=== PATIENT | male | born 1960 | race Caucasian/White ===

== ENCOUNTER → 2018-03-02 18:05 | Outpatient (CLI) | payer OTHER, SELFPAY ==
[2018-03-02 18:41] LABS: Hemoglobin A1C% w Est Avg Glu 8.4 % (4.0-6.0)
[2018-03-02 19:08] LABS: Alanine Aminotransferase 39 IU/L (21-72); Albumin 4.4 g/dL (3.5-5.0); Albumin Globulin Ratio 1.8 (1.0-2.8); Alkaline Phosphatase 77 U/L (38-126); Aspartate Aminotransferase 24 IU/L (17-59); BUN Creatinine Ratio 13.3 (6-22); Bilirubin Total 0.6 mg/dL (0.2-1.3); Blood Urea Nitrogen 12 mg/dL (9-20); Calcium 10.1 mg/dL (8.4-10.2); Carbon Dioxide 29 mmol/L (22-32); Chloride 103 mmol/L (98-107); Cholesterol 164 mg/dL (140-199); Estimated Glomerular Filt Rate > 60.0 mL/min (>60); Globulin 2.5 g/dL (1.7-4.1); Glucose 168 mg/dL (70-100); HDL Cholesterol 32 mg/dL (40-60); HEMOLYSIS < 15 (0-50); Potassium 4.7 mmol/L (3.4-5.1); Sodium 143 mmol/L (137-145); Total Protein 6.9 g/dL (6.3-8.2); Triglycerides 494 mg/dL (35-150)
== END ==
PROVIDERS: PCP Family Medicine; Visit Provider Family Medicine
DX: E11.9 Type 2 diabetes mellitus without complications (principal); E78.1 Pure hyperglyceridemia
CPT/HCPCS: 36415; 80053; 80061; 83036

== ENCOUNTER → 2018-05-28 09:48 | Outpatient (CLI) | payer OTHER, SELFPAY ==
[2018-05-28 12:35] LABS: Hemoglobin A1C% w Est Avg Glu 9.6 % (4.0-6.0)
== END ==
PROVIDERS: PCP Family Medicine; Visit Provider Family Medicine
DX: E11.9 Type 2 diabetes mellitus without complications (principal)
CPT/HCPCS: 36415; 83036

== ENCOUNTER → 2018-08-22 10:30 | Outpatient (CLI) | payer OTHER, SELFPAY ==
[2018-08-22 11:22] LABS: Add Manual Diff / Slide Review NO; Basophils Absolute Auto 100 /uL (0-100); Basophils Percent Auto 0.9 % (0-2); Eosinophils Absolute Auto 300 /uL (0-450); Eosinophils Percent Auto 3.9 % (2-4); Hematocrit 41.2 % (41-53); Hemoglobin 14.6 g/dL (13.5-17.5); Lymphocytes Absolute Auto 1400 /uL (1100-4500); Lymphocytes Percent Auto 21.3 % (25-40); Mean Corpuscular HGB Conc 35.4 % (30-36); Mean Corpuscular Hemoglobin 32.2 PG (26-34); Mean Corpuscular Volume 90.8 fL (80-100); Monocytes Absolute Auto 600 /uL (0-900); Monocytes Percent Auto 9.4 % (3-14); Neutrophils Absolute Auto 4200 /uL (1500-7000); Neutrophils Percent Auto 64.5 % (50-75); Platelet Count 315 X10^3/uL (150-400); Red Blood Cell Count 4.54 X10^6/uL (4.5-5.9); Red Cell Distribution Width 14.5 % (11.6-14.8); White Blood Cell Count 6.5 X10^3/uL (4.5-11.0)
[2018-08-22 11:40] LABS: Alanine Aminotransferase 41 IU/L (21-72); Albumin 4.1 g/dL (3.5-5.0); Albumin Globulin Ratio 1.5 (1.0-2.8); Alkaline Phosphatase 157 U/L (38-126); Aspartate Aminotransferase 23 IU/L (17-59); BUN Creatinine Ratio 14.4 (6-22); Bilirubin Total 0.5 mg/dL (0.2-1.3); Blood Urea Nitrogen 13 mg/dL (9-20); Calcium 8.7 mg/dL (8.4-10.2); Carbon Dioxide 21 mmol/L (22-32); Chloride 103 mmol/L (98-107); Estimated Glomerular Filt Rate > 60.0 mL/min (>60); Globulin 2.8 g/dL (1.7-4.1); HEMOLYSIS 45 (0-50); Potassium 4.6 mmol/L (3.4-5.1); Sodium 135 mmol/L (137-145); Total Protein 6.9 g/dL (6.3-8.2)
[2018-08-22 11:46] LABS: Glucose 489 mg/dL (70-100)
[2018-08-22 11:52] LABS: Hemoglobin A1C% w Est Avg Glu 9.7 % (4.0-6.0)
[2018-08-22 12:11] LABS: Thyroid Stimulating Hormone 1.74 uIU/mL (0.47-4.68)
[2018-08-22 12:20] LABS: Appearance Urine UA CLEAR; Bilirubin Urine UA NEGATIVE (NEGATIVE); Color Urine UA YELLOW; Glucose Urine UA 2+ g/dL (Negative); Ketones Urine UA NEGATIVE (NEGATIVE); Leukocyte Esterase Urine UA NEGATIVE (NEGATIVE); Nitrite Urine UA NEGATIVE (Negative); Occult Blood Urine UA NEGATIVE (Negative); Protein Urine UA NEGATIVE (Negative); Urobilinogen Urine UA 0.2 E.U./dL (0.2)
== END ==
PROVIDERS: PCP Family Medicine; Visit Provider Family Medicine
DX: E11.9 Type 2 diabetes mellitus without complications (principal); E78.1 Pure hyperglyceridemia; I10 Essential (primary) hypertension
CPT/HCPCS: 36415; 80053; 81003; 83036; 84443; 85025

== ENCOUNTER → 2018-12-06 17:07 | Outpatient (CLI) | payer OTHER, SELFPAY ==
[2018-12-06 18:24] LABS: Alanine Aminotransferase 39 IU/L (21-72); Albumin 4.2 g/dL (3.5-5.0); Albumin Globulin Ratio 1.4 (1.0-2.8); Alkaline Phosphatase 116 U/L (38-126); Aspartate Aminotransferase 27 IU/L (17-59); BUN Creatinine Ratio 13.8 (6-22); Bilirubin Total 0.6 mg/dL (0.2-1.3); Blood Urea Nitrogen 11 mg/dL (9-20); Calcium 9.1 mg/dL (8.4-10.2); Carbon Dioxide 24 mmol/L (22-32); Chloride 106 mmol/L (98-107); Cholesterol 197 mg/dL (140-199); Estimated Glomerular Filt Rate > 60.0 mL/min (>60); Globulin 3.1 g/dL (1.7-4.1); Glucose 265 mg/dL (70-100); HDL Cholesterol 23 mg/dL (40-60); Potassium 4.2 mmol/L (3.4-5.1); Sodium 140 mmol/L (137-145); Total Protein 7.3 g/dL (6.3-8.2)
[2018-12-06 18:25] LABS: Hemoglobin A1C% w Est Avg Glu 10.3 % (4.0-6.0)
[2018-12-06 18:32] LABS: HEMOLYSIS 54 (0-50); Triglycerides 1306 mg/dL (35-150)
== END ==
PROVIDERS: PCP Family Medicine; Visit Provider Family Medicine
DX: E11.9 Type 2 diabetes mellitus without complications (principal); I10 Essential (primary) hypertension
CPT/HCPCS: 36415; 80053; 80061; 83036

== ENCOUNTER → 2019-05-04 16:11 | Outpatient (CLI) | payer OTHER, SELFPAY ==
[2019-05-04 17:00] LABS: Hemoglobin A1C% w Est Avg Glu 10.1 % (4.0-6.0)
[2019-05-04 17:11] LABS: Alanine Aminotransferase 28 IU/L (<50); Albumin 4.2 g/dL (3.5-5.0); Albumin Globulin Ratio 1.6 (1.0-2.8); Alkaline Phosphatase 107 U/L (38-126); Aspartate Aminotransferase 22 IU/L (17-59); Bilirubin Total 0.6 mg/dL (0.2-1.3); Blood Urea Nitrogen 8 mg/dL (9-20); Calcium 9.3 mg/dL (8.4-10.2); Carbon Dioxide 28 mmol/L (22-32); Chloride 104 mmol/L (98-107); Cholesterol 140 mg/dL (140-199); Estimated Glomerular Filt Rate > 60.0 mL/min (>60); Globulin 2.6 g/dL (1.7-4.1); Glucose 175 mg/dL (70-100); HDL Cholesterol 24 mg/dL (40-60); HEMOLYSIS < 15 (0-50); Potassium 4.2 mmol/L (3.4-5.1); Sodium 141 mmol/L (137-145); Total Protein 6.8 g/dL (6.3-8.2); Triglycerides 414 mg/dL (35-150)
== END ==
PROVIDERS: PCP Family Medicine; Visit Provider Family Medicine
DX: E11.9 Type 2 diabetes mellitus without complications (principal); E78.1 Pure hyperglyceridemia; I10 Essential (primary) hypertension
CPT/HCPCS: 36415; 80053; 80061; 83036

== ENCOUNTER → 2019-07-17 13:35 | Outpatient (CLI) | payer OTHER, SELFPAY ==
--- NOTE | 2019-07-17 13:36 | DI.NM.S_ITS ---
PROCEDURE: NM SHYANNE PERF SPECT REST & STR Rest and exercise myocardial perfusion SPECT with gated imaging and ejection fraction RADIOPHARMACEUTICAL: 25.3 mCi Tc-99m sestamibi IV at rest and 25.1 mCi Tc-99m sestamibi IV at peak exercise. A two day-protocol was performed. INDICATIONS: Chest pain TECHNIQUE: Radiopharmaceutical was injected at peak stress test, and also at rest. SPECT images were obtained. SPECT myocardial perfusion images were displayed in short axis, horizontal long axis, and vertical long axis views. Gated images were reviewed using FirmPlay software. COMPARISON: None. CARDIAC STRESS: A standard Farzad treadmill exercise tolerance test was performed by the patient under the supervision of an attending staff. The patient exercised for 6 minutes and 13 seconds; functional aerobic impairment (KIMMY) is +31%. Hemodynamic data: There is normal heart rate response to exercise stress. Patient achieved 93% of maximum predicted heart rate at peak exercise. Borderline hypertensive response to exercise (rest BP 130/76mmHg, max BP 220/90mmHg). Symptoms: Patient denied chest pain during exercise. EKG: No diagnostic EKG changes of ischemia; no ectopy. FINDINGS: Raw data: There is good myocardial labeling by radiotracer. No significant motion artifacts. Lryq-oq-smgxy ratio is 0.26 (normal is less than 0.38 for sestamibi tracer, and less than 0.50 for thallium tracer). Left ventricle function: Gated images demonstrate normal left ventricle wall thickening. No segmental wall motion abnormality. No transient ischemic dilation; TID is 0.93 (normal less than 1.3). The left ventricle resting end-diastolic volume is 133 mL. Left ventricle stress ejection fraction is 67%; normal values are above 45%. Myocardial perfusion: There is normal distribution of activity in the left and right ventricular myocardium. No fixed or reversible perfusion defects. IMPRESSION: low risk, normal treadmill nuclear stress test 1) Normal perfusion images, with no evidence of ischemia or infarction. 2) Normal left ventricular size, wall motion, and systolic function (EF post stress 67%). 3) No ECG evidence of ischemia. 4) No angina during the study. 5) Reduced exercise tolerance (7.0 METs, KIMMY +31%). Target heart rate reached. 6) Borderline hypertensive response to exercise (rest BP 130/76mmHg, max BP 220/90mmHg). 7) No prior nuclear stress test available for comparison. Dictated by: Alfredo Austin MD on 07/18/2019 at 16:41 Approved by: Alfredo Austin MD on 07/18/2019 at 16:45
--- NOTE | 2019-07-17 15:08 | PM.TREADMILL ---
Cardiac Stress Test Report Referral & Results Date Patient Seen: 07/17/19 Requesting provider: Jeanentte Diez Indication: Chest pain Rest ECG: Unremarkable Procedure Note: Today following both written and verbal informed consent the patient was exercised according to a standard Farzad protocol patient went for a total of 6 minutes 13 seconds achieving a maximum heart rate of 153 maximum systolic blood pressure of 220. This is approximately 7.0 METS. Exercise was terminated at this point because of patient unable to continue and targets were met. Patient was also given Cardiolite through a previously started Hep-Lock IV by the diagnostic imaging staff approximately 1 minute prior to the cessation of exercise. No ST-T segment changes Normal heart rate and blood pressure response Functional aerobic impairment rates about 25% sedentary scale Occasional PAC Impression: No ECG evidence of ischemia. Please see perfusion imaging report as well. Please note: Actual ECG tracings can be found in the PACS system.
== END ==
PROVIDERS: PCP Family Medicine; Referring Provider Family Medicine; Visit Provider Family Medicine
DX: R07.9 Chest pain, unspecified (principal)
CPT/HCPCS: 78452; 93016; 93017; 93018; A9502

== ENCOUNTER → 2019-08-03 07:12 | Outpatient (CLI) | payer OTHER, SELFPAY ==
[2019-08-03 09:04] LABS: BUN Creatinine Ratio 13.8 (6-22); Blood Urea Nitrogen 11 mg/dL (9-20); Calcium 10.1 mg/dL (8.4-10.2); Carbon Dioxide 23 mmol/L (22-32); Chloride 101 mmol/L (98-107); Estimated Glomerular Filt Rate > 60.0 mL/min (>60); Glucose 230 mg/dL (70-100); HEMOLYSIS < 15 (0-50); Potassium 4.4 mmol/L (3.4-5.1); Sodium 138 mmol/L (137-145)
[2019-08-03 09:09] LABS: Hemoglobin A1C% w Est Avg Glu 10.1 % (4.0-6.0)
== END ==
PROVIDERS: PCP Internal Medicine; Referring Provider Internal Medicine; Visit Provider Internal Medicine
DX: E11.9 Type 2 diabetes mellitus without complications (principal); E78.1 Pure hyperglyceridemia; I10 Essential (primary) hypertension
CPT/HCPCS: 36415; 80048; 83036

== ENCOUNTER → 2019-11-20 16:30 | Outpatient (CLI) | payer OTHER, SELFPAY ==
[2019-11-20 17:02] LABS: Hemoglobin A1C% w Est Avg Glu 9.4 % (4.0-6.0)
[2019-11-20 17:51] LABS: BUN Creatinine Ratio 17.1 (6-22); Blood Urea Nitrogen 14 mg/dL (9-20); Calcium 9.3 mg/dL (8.4-10.2); Carbon Dioxide 25 mmol/L (22-32); Chloride 109 mmol/L (98-107); Estimated Glomerular Filt Rate > 60.0 mL/min (>60); Glucose 139 mg/dL (70-100); HEMOLYSIS < 15 (0-50); Sodium 140 mmol/L (137-145)
== END ==
PROVIDERS: PCP Internal Medicine; Referring Provider Internal Medicine; Visit Provider Internal Medicine
DX: E11.65 Type 2 diabetes mellitus with hyperglycemia (principal); I10 Essential (primary) hypertension; Z79.4 Long term (current) use of insulin
CPT/HCPCS: 36415; 80048; 83036

== ENCOUNTER → 2020-01-26 12:20 | Outpatient (CLI) | payer OTHER, SELFPAY ==
[2020-01-26 13:31] LABS: Hemoglobin A1C% w Est Avg Glu 8.2 % (4.0-6.0)
== END ==
PROVIDERS: PCP Internal Medicine; Referring Provider Internal Medicine; Visit Provider Internal Medicine
DX: E11.65 Type 2 diabetes mellitus with hyperglycemia (principal); Z79.4 Long term (current) use of insulin
CPT/HCPCS: 36415; 83036

== ENCOUNTER → 2020-06-28 07:52 | Outpatient (CLI) | payer OTHER, SELFPAY ==
[2020-06-28 08:34] LABS: Hemoglobin A1C% w Est Avg Glu 8.5 % (4.0-6.0)
[2020-06-28 08:57] LABS: Alanine Aminotransferase 32 IU/L (<50); Albumin 4.1 g/dL (3.5-5.0); Albumin Globulin Ratio 1.6 (1.0-2.8); Alkaline Phosphatase 104 U/L (38-126); Aspartate Aminotransferase 24 IU/L (17-59); BUN Creatinine Ratio 14.4 (6-22); Bilirubin Total 0.4 mg/dL (0.2-1.3); Blood Urea Nitrogen 15 mg/dL (9-20); Calcium 9.7 mg/dL (8.4-10.2); Carbon Dioxide 29 mmol/L (22-32); Chloride 104 mmol/L (98-107); Estimated Glomerular Filt Rate > 60.0 mL/min (>60); Globulin 2.6 g/dL (1.7-4.1); Glucose 99 mg/dL (70-100); HEMOLYSIS 16 (0-50); Potassium 3.8 mmol/L (3.4-5.1); Sodium 137 mmol/L (137-145); Total Protein 6.7 g/dL (6.3-8.2)
== END ==
PROVIDERS: PCP Internal Medicine; Referring Provider Internal Medicine; Visit Provider Internal Medicine
DX: E11.65 Type 2 diabetes mellitus with hyperglycemia (principal); I10 Essential (primary) hypertension; Z79.4 Long term (current) use of insulin
CPT/HCPCS: 36415; 80053; 83036

== ENCOUNTER → 2020-10-31 16:07 | Outpatient (CLI) | payer OTHER, SELFPAY ==
[2020-10-31 18:08] LABS: Hemoglobin A1C% w Est Avg Glu 8.8 % (4.0-6.0)
[2020-10-31 18:17] LABS: BUN Creatinine Ratio 12.2 (6-22); Blood Urea Nitrogen 11 mg/dL (9-20); Calcium 9.3 mg/dL (8.4-10.2); Carbon Dioxide 23 mmol/L (22-32); Chloride 108 mmol/L (98-107); Estimated Glomerular Filt Rate > 60.0 mL/min (>60); Glucose 135 mg/dL (70-100); HEMOLYSIS 32 (0-50); Potassium 4.2 mmol/L (3.4-5.1); Sodium 139 mmol/L (137-145)
== END ==
PROVIDERS: PCP Internal Medicine; Referring Provider Internal Medicine; Visit Provider Internal Medicine
DX: E11.65 Type 2 diabetes mellitus with hyperglycemia (principal); I10 Essential (primary) hypertension; Z79.4 Long term (current) use of insulin
CPT/HCPCS: 36415; 80048; 83036

== ENCOUNTER → 2021-01-21 13:21 | Outpatient (CLI) | payer OTHER, SELFPAY ==
[2021-01-21 14:44] LABS: Hemoglobin A1C% w Est Avg Glu 7.4 % (4.0-6.0)
[2021-01-21 14:58] LABS: BUN Creatinine Ratio 12.7 (6-22); Blood Urea Nitrogen 14 mg/dL (9-20); Calcium 9.2 mg/dL (8.4-10.2); Carbon Dioxide 23 mmol/L (22-32); Chloride 107 mmol/L (98-107); Estimated Glomerular Filt Rate > 60.0 mL/min (>60); Glucose 184 mg/dL (70-100); HEMOLYSIS 50 (0-50); Potassium 4.4 mmol/L (3.4-5.1); Sodium 140 mmol/L (137-145)
== END ==
PROVIDERS: PCP Internal Medicine; Referring Provider Internal Medicine; Visit Provider Internal Medicine
DX: E11.65 Type 2 diabetes mellitus with hyperglycemia (principal); I10 Essential (primary) hypertension; Z79.4 Long term (current) use of insulin
CPT/HCPCS: 36415; 80048; 83036

== ENCOUNTER → 2021-07-28 09:27 | Outpatient (CLI) | payer OTHER, SELFPAY ==
[2021-07-28 11:26] LABS: Alanine Aminotransferase 27 IU/L (<50); Albumin 4.2 g/dL (3.5-5.0); Albumin Globulin Ratio 1.5 (1.0-2.8); Alkaline Phosphatase 96 U/L (38-126); Aspartate Aminotransferase 21 IU/L (17-59); Bilirubin Total 0.5 mg/dL (0.2-1.3); Blood Urea Nitrogen 13 mg/dL (9-20); Calcium 9.8 mg/dL (8.4-10.2); Carbon Dioxide 26 mmol/L (22-32); Chloride 106 mmol/L (98-107); Cholesterol 147 mg/dL (140-199); Estimated Glomerular Filt Rate > 60.0 mL/min (>60); Globulin 2.8 g/dL (1.7-4.1); Glucose 134 mg/dL (70-100); HDL Cholesterol 25 mg/dL (40-60); HEMOLYSIS < 15 (0-50); Potassium 4.4 mmol/L (3.4-5.1); Sodium 139 mmol/L (137-145); Triglycerides 457 mg/dL (35-150)
[2021-07-28 11:56] LABS: Prostate Specific Antigen Scrn 0.631 ng/mL (0.1-4.0)
== END ==
PROVIDERS: PCP Internal Medicine; Referring Provider Internal Medicine; Visit Provider Internal Medicine
DX: E11.9 Type 2 diabetes mellitus without complications (principal); E78.1 Pure hyperglyceridemia; I10 Essential (primary) hypertension; Z12.5 Encounter for screening for malignant neoplasm of prostate
CPT/HCPCS: 36415; 80053; 80061; 83036; G0103

== ENCOUNTER → 2021-11-19 16:38 | Outpatient (CLI) | payer OTHER, SELFPAY ==
[2021-11-19 17:23] LABS: Hemoglobin A1C% w Est Avg Glu 7.8 % (4.0-6.0)
[2021-11-19 17:42] LABS: BUN Creatinine Ratio 16.2 (6-22); Blood Urea Nitrogen 16 mg/dL (9-20); Calcium 9.2 mg/dL (8.4-10.2); Carbon Dioxide 24 mmol/L (22-32); Chloride 106 mmol/L (98-107); Estimated Glomerular Filt Rate > 60 mL/min (>60); Glucose 197 mg/dL (70-100); HEMOLYSIS 29 (0-50); Potassium 4.5 mmol/L (3.4-5.1); Sodium 137 mmol/L (137-145)
== END ==
PROVIDERS: PCP Internal Medicine; Referring Provider Internal Medicine; Visit Provider Internal Medicine
DX: E11.65 Type 2 diabetes mellitus with hyperglycemia (principal); I10 Essential (primary) hypertension; Z79.4 Long term (current) use of insulin
CPT/HCPCS: 36415; 80048; 83036

== ENCOUNTER → 2022-03-09 07:17 | Outpatient (CLI) | payer OTHER, SELFPAY ==
[2022-03-09 10:22] LABS: Alanine Aminotransferase 33 IU/L (<50); Albumin 4.2 g/dL (3.5-5.0); Albumin Globulin Ratio 1.3 (1.0-2.8); Alkaline Phosphatase 100 U/L (38-126); Aspartate Aminotransferase 26 IU/L (17-59); BUN Creatinine Ratio 12.1 (6-22); Bilirubin Total 0.7 mg/dL (0.2-1.3); Blood Urea Nitrogen 13 mg/dL (9-20); Calcium 9.3 mg/dL (8.4-10.2); Carbon Dioxide 26 mmol/L (22-32); Chloride 103 mmol/L (98-107); Cholesterol 138 mg/dL (140-199); Estimated Glomerular Filt Rate > 60 mL/min (>60); Globulin 3.2 g/dL (1.7-4.1); Glucose 156 mg/dL (70-100); HDL Cholesterol 23 mg/dL (40-60); HEMOLYSIS < 15 (0-50); Potassium 4.6 mmol/L (3.4-5.1); Sodium 141 mmol/L (137-145); Total Protein 7.4 g/dL (6.3-8.2); Triglycerides 426 mg/dL (35-150)
[2022-03-09 10:24] LABS: Hemoglobin A1C% w Est Avg Glu 7.4 % (4.0-6.0)
[2022-03-09 10:43] LABS: LDL Cholesterol Direct 58 mg/dL (<100)
== END ==
PROVIDERS: PCP Internal Medicine; Referring Provider Internal Medicine; Visit Provider Internal Medicine
DX: E11.65 Type 2 diabetes mellitus with hyperglycemia (principal); E78.1 Pure hyperglyceridemia; I10 Essential (primary) hypertension; Z79.4 Long term (current) use of insulin
CPT/HCPCS: 36415; 80053; 80061; 83036; 83721

== ENCOUNTER → 2022-06-08 08:32 | Outpatient (CLI) | payer OTHER, SELFPAY ==
[2022-06-08 09:17] LABS: BUN Creatinine Ratio 21.5 (6-22); Blood Urea Nitrogen 17 mg/dL (9-20); Calcium 9.4 mg/dL (8.4-10.2); Carbon Dioxide 22 mmol/L (22-32); Chloride 104 mmol/L (98-107); Estimated Glomerular Filt Rate > 60 mL/min (>60); Glucose 134 mg/dL (70-100); HEMOLYSIS < 15 (0-50); Potassium 3.7 mmol/L (3.4-5.1); Sodium 139 mmol/L (137-145)
[2022-06-08 09:36] LABS: Hemoglobin A1C% w Est Avg Glu 7.8 % (4.0-6.0)
== END ==
PROVIDERS: PCP Internal Medicine; Referring Provider Internal Medicine; Visit Provider Internal Medicine
DX: E11.65 Type 2 diabetes mellitus with hyperglycemia (principal); I10 Essential (primary) hypertension; Z79.4 Long term (current) use of insulin
CPT/HCPCS: 36415; 80048; 83036

== ENCOUNTER → 2022-09-14 09:03 | Outpatient (CLI) | payer OTHER, SELFPAY ==
[2022-09-14 10:30] LABS: BUN Creatinine Ratio 10.3 (6-22); Blood Urea Nitrogen 9 mg/dL (9-20); Calcium 9.2 mg/dL (8.4-10.2); Carbon Dioxide 24 mmol/L (22-32); Chloride 106 mmol/L (98-107); Estimated Glomerular Filt Rate > 60 mL/min (>60); Glucose 94 mg/dL (80-110); HEMOLYSIS < 15 (0-50); Potassium 3.8 mmol/L (3.4-5.1); Sodium 139 mmol/L (137-145)
[2022-09-15 07:53] LABS: Labcorp Hemoglobin (Hb) A1c 8.1 % (4.8-5.6)
== END ==
PROVIDERS: PCP Internal Medicine; Referring Provider Internal Medicine; Visit Provider Internal Medicine
DX: E11.65 Type 2 diabetes mellitus with hyperglycemia (principal); I10 Essential (primary) hypertension; Z79.4 Long term (current) use of insulin
CPT/HCPCS: 36415; 80048; 83036

== ENCOUNTER → 2022-11-17 10:36 | Outpatient (CLI) | payer OTHER, SELFPAY ==
[2022-11-17 12:05] LABS: Alanine Aminotransferase 26 IU/L (<50); Albumin 4.3 g/dL (3.5-5.0); Albumin Globulin Ratio 1.7 (1.0-2.8); Alkaline Phosphatase 92 U/L (38-126); Aspartate Aminotransferase 20 IU/L (17-59); BUN Creatinine Ratio 18.3 (6-22); Bilirubin Total 0.6 mg/dL (0.2-1.3); Blood Urea Nitrogen 17 mg/dL (9-20); Calcium 9.2 mg/dL (8.4-10.2); Carbon Dioxide 23 mmol/L (22-32); Chloride 104 mmol/L (98-107); Estimated Glomerular Filt Rate > 60 mL/min (>60); Globulin 2.6 g/dL (1.7-4.1); Glucose 147 mg/dL (80-110); HEMOLYSIS < 15 (0-50); Potassium 4.4 mmol/L (3.4-5.1); Sodium 137 mmol/L (137-145); Total Protein 6.9 g/dL (6.3-8.2)
[2022-11-18 06:19] LABS: x Labcorp Estim. Avg Glu (eAG) 148 mg/dL (.); x Labcorp Hemoglobin A1c 6.8 % (4.8-5.6)
== END ==
PROVIDERS: PCP Internal Medicine; Referring Provider Internal Medicine; Visit Provider Internal Medicine
DX: E11.65 Type 2 diabetes mellitus with hyperglycemia (principal); E78.1 Pure hyperglyceridemia; I10 Essential (primary) hypertension; Z79.4 Long term (current) use of insulin
CPT/HCPCS: 36415; 80053; 83036

== ENCOUNTER → 2022-12-14 10:19 | Outpatient (CLI) | payer OTHER, SELFPAY ==
[2022-12-15 06:22] LABS: x Labcorp Estim. Avg Glu (eAG) 146 mg/dL (.); x Labcorp Hemoglobin A1c 6.7 % (4.8-5.6)
== END ==
PROVIDERS: PCP Internal Medicine; Referring Provider Internal Medicine; Visit Provider Internal Medicine
DX: E11.65 Type 2 diabetes mellitus with hyperglycemia (principal); Z79.4 Long term (current) use of insulin; I10 Essential (primary) hypertension; E78.1 Pure hyperglyceridemia
CPT/HCPCS: 36415; 83036

== ENCOUNTER → 2023-06-18 17:14 | Outpatient (CLI) | payer SELFPAY ==
[2023-06-18 17:40] LABS: Alanine Aminotransferase 34 IU/L (<50); Albumin 4.3 g/dL (3.5-5.0); Albumin Globulin Ratio 1.4 (1.0-2.8); Alkaline Phosphatase 90 U/L (38-126); Aspartate Aminotransferase 29 IU/L (17-59); BUN Creatinine Ratio 13.4 (6-22); Bilirubin Total 0.7 mg/dL (0.2-1.3); Blood Urea Nitrogen 11 mg/dL (9-20); Calcium 9.8 mg/dL (8.4-10.2); Carbon Dioxide 22 mmol/L (22-32); Chloride 108 mmol/L (98-107); Cholesterol 121 mg/dL (140-199); Estimated Glomerular Filt Rate > 60 mL/min (>60); Globulin 3.1 g/dL (1.7-4.1); Glucose 112 mg/dL (80-110); HDL Cholesterol 28 mg/dL (40-60); HEMOLYSIS 43 (0-50); LDL Cholesterol Calculated 40 mg/dL (<100); Potassium 4.1 mmol/L (3.4-5.1); Sodium 139 mmol/L (137-145); Total Protein 7.4 g/dL (6.3-8.2); Triglycerides 264 mg/dL (35-150)
[2023-06-18 17:42] LABS: Hemoglobin A1C% w Est Avg Glu 7.2 % (4.0-6.0)
[2023-06-18 18:12] LABS: Creatinine Urine Random 120.8 mg/dL
[2023-06-18 18:18] LABS: Microalbumi Creatinin Ratio Ur 13.2 ug/mg CR (<30); Microalbumin Urine Random 1.6 mg/dL (0-1.6)
== END ==
PROVIDERS: PCP Internal Medicine; Referring Provider Internal Medicine; Visit Provider Internal Medicine
DX: E11.9 Type 2 diabetes mellitus without complications (principal); E78.1 Pure hyperglyceridemia; I10 Essential (primary) hypertension
CPT/HCPCS: 36415; 80053; 80061; 82043; 82570; 83036

== ENCOUNTER → 2023-12-20 09:25 | Outpatient (CLI) | payer OTHER, SELFPAY ==
[2023-12-20 10:52] LABS: Hemoglobin A1C% w Est Avg Glu 7.6 % (4.0-6.0)
[2023-12-20 11:05] LABS: Alanine Aminotransferase 37 IU/L (<50); Albumin 4.3 g/dL (3.5-5.0); Albumin Globulin Ratio 1.5 (1.0-2.8); Alkaline Phosphatase 98 U/L (38-126); Aspartate Aminotransferase 36 IU/L (17-59); BUN Creatinine Ratio 16.7 (6-22); Bilirubin Total 0.9 mg/dL (0.2-1.3); Blood Urea Nitrogen 16 mg/dL (9-20); Calcium 9.2 mg/dL (8.4-10.2); Carbon Dioxide 24 mmol/L (22-32); Chloride 108 mmol/L (98-107); Cholesterol 122 mg/dL (140-199); Estimated Glomerular Filt Rate > 60 mL/min (>60); Globulin 2.9 g/dL (1.7-4.1); Glucose 138 mg/dL (80-110); HDL Cholesterol 28 mg/dL (40-60); HEMOLYSIS 32 (0-50); LDL Cholesterol Calculated 21 mg/dL (<100); Potassium 4.3 mmol/L (3.4-5.1); Sodium 138 mmol/L (137-145); Total Protein 7.2 g/dL (6.3-8.2); Triglycerides 366 mg/dL (35-150)
== END ==
PROVIDERS: PCP Internal Medicine; Referring Provider Internal Medicine; Visit Provider Internal Medicine
DX: E11.65 Type 2 diabetes mellitus with hyperglycemia (principal); Z79.4 Long term (current) use of insulin; I10 Essential (primary) hypertension
CPT/HCPCS: 36415; 80053; 80061; 83036

== ENCOUNTER → 2024-02-09 06:55 | Outpatient (CLI) | payer OTHER, SELFPAY ==
--- NOTE | 2024-02-09 06:55 | DI.ECHO.S_ITS ---
[facility] : : [address] : : [place] : : [id number] : : Phone: [phone] Echocardiogram Report + + :Name: SERA TRAMMELL Study Date: 02/09/2024 Height: 67.5 in: :[facility] ReadingLocation: Weight: 255 lb : : Gender: Male BSA: 2.3 m2 : :: 1960 Age: 63 yrs BP: 159/82 mmHg: :Reason For Study: SYSTOLIC MURMUR : :Ordering Physician: ANDRIA, : :AMBAR Landrum Performed By: Elodia Reynoso : :Referring: AMBAR AYERS : + + Interpretation Summary The ejection fraction is estimated to be 65-70%. Diastolic parameters suggest probable normal left ventricular diastolic function and normal filling pressures. The right ventricle is normal in size and function. Moderate aortic valve sclerosis. There is mild tricuspid regurgitation. The right ventricular systolic pressure is estimated to be at least 27 mmHg based on an estimated right atrial pressure of 3 mm Hg. Procedure: A two-dimensional transthoracic echocardiogram with color flow and Doppler was performed. The study quality was technically adequate. There is no prior echocardiogram noted for this patient. The patient was in sinus rhythm with heart rates between 65-70 bpm during the exam. Left Ventricle: The left ventricle is normal in size. There is borderline concentric left ventricular hypertrophy. The ejection fraction is estimated to be 65-70%. Diastolic parameters suggest probable normal left ventricular diastolic function and normal filling pressures. Right Ventricle: The right ventricle is normal in size and function. Atria: The left atrial size is normal. Right atrial size is normal. There is no Doppler evidence for an interatrial shunt. Mitral Valve: The mitral valve is normal in structure and function. There is trace mitral regurgitation. Aortic Valve: The aortic valve is trileaflet. The aortic valve is moderately calcified. There is mildly reduced leaflet mobility. There is no hemodynamically significant valvular aortic stenosis. No aortic regurgitation is present. Tricuspid Valve: The tricuspid valve is normal in structure and function. There is mild tricuspid regurgitation. The right ventricular systolic pressure is estimated to be at least 27 mmHg based on an estimated right atrial pressure of 3 mm Hg. Pulmonic Valve: The pulmonic valve leaflets are thin and pliable; valve motion is normal. There is no pulmonic valvular regurgitation. Great Vessels: The aortic root is normal size. The dimensions of the ascending aorta are normal. The IVC is of normal diameter and collapses greater than 50% with a sniff. This suggests a low right atrial pressure of 3 mm Hg. Pericardium/ Pleura There is no pericardial effusion. There is no pleural effusion. MMode/2D Measurements & Calculations LVIDd: 5.2 cm LVOT diam: 2.0 cm LVIDs: 3.1 cm Ao root diam: 3.4 cm FS: 39.5 % asc Aorta Diam: 3.6 cm IVSd: 1.0 cm LVPWd: 1.1 cm LV balderrama. diameter/BSA (cm/m^2): 2.3 LV sys. diameter/BSA (cm/m^2): 1.4 LA A2 area: 20.1 cm2 RA long axis: 5.0 cm LA A4 area: 18.4 cm2 RA area: 16.2 cm2 LA length (vol): 5.3 cm RA vol: 44.2 ml LA vol: 59.0 ml RA : 19.6 ml/m2 LA vol index: 26.1 ml/m2 IVC diam: 1.9 cm RVD1 (basal): 4.3 cm RVD2 (mid): 4.1 cm TAPSE: 2.2 cm Doppler Measurements & Calculations Ao V2 max: 235.9 cm/sec LVOT Max Gerry: 96.5 cm/sec Ao V2 mean: 164.7 cm/sec LV V1 max P.8 mmHg Ao max P.6 mmHg LV V1 VTI: 23.2 cm Ao mean P.1 mmHg DARLENE(I,D): 1.4 cm2 Ao V2 VTI: 51.1 cm DARLENE(V,D): 1.3 cm2 sev ratio: 0.45 DARLENE indexed to BSA (cm^2/m^2): 0.63 MV E max gerry: 91.9 cm/sec TR max gerry: 245.5 cm/sec MV A max gerry: 82.1 cm/sec TR max P.1 mmHg MV E/A: 1.1 PA V2 max: 119.8 cm/sec Med Peak E' Gerry: 8.0 cm/sec PA V2 mean: 86.5 cm/sec E/E' med: 11.5 PA mean P.3 mmHg Lat Peak E' Gerry: 10.0 cm/sec PA pr(Accel): 29.3 mmHg E/E' lat: 9.2 E/e' average: 10.4 MV dec time: 0.26 sec SVLVOT): 72.7 ml Reading Physician:03:32 PM
== END ==
PROVIDERS: PCP Internal Medicine; Referring Provider Internal Medicine; Visit Provider Internal Medicine
DX: I08.2 Rheumatic disorders of both aortic and tricuspid valves (principal); R01.1 Cardiac murmur, unspecified
CPT/HCPCS: 93306

== ENCOUNTER → 2024-03-25 08:21 | Outpatient (CLI) | payer SELFPAY ==
[2024-03-25 10:05] LABS: Alanine Aminotransferase 29 IU/L (<50); Albumin 3.7 g/dL (3.5-5.0); Albumin Globulin Ratio 1.4 (1.0-2.8); Alkaline Phosphatase 146 U/L (38-126); Aspartate Aminotransferase 19 IU/L (17-59); BUN Creatinine Ratio 13.6 (6-22); Bilirubin Total 0.6 mg/dL (0.2-1.3); Blood Urea Nitrogen 11 mg/dL (9-20); Calcium 9.4 mg/dL (8.4-10.2); Carbon Dioxide 24 mmol/L (22-32); Chloride 103 mmol/L (98-107); Estimated Glomerular Filt Rate > 60 mL/min (>60); Globulin 2.7 g/dL (1.7-4.1); Glucose 277 mg/dL (80-110); HEMOLYSIS 30 (0-50); Sodium 134 mmol/L (137-145); Total Protein 6.4 g/dL (6.3-8.2)
[2024-03-25 12:23] LABS: Hemoglobin A1C% w Est Avg Glu 7.2 % (4.0-6.0)
== END ==
PROVIDERS: PCP Internal Medicine; Referring Provider Internal Medicine; Visit Provider Internal Medicine
DX: E11.65 Type 2 diabetes mellitus with hyperglycemia (principal); Z79.4 Long term (current) use of insulin; I10 Essential (primary) hypertension
CPT/HCPCS: 36415; 80053; 83036

== ENCOUNTER → 2024-06-26 08:18 | Outpatient (CLI) | payer OTHER, SELFPAY ==
[2024-06-26 09:06] LABS: Hemoglobin A1C% w Est Avg Glu 7.5 % (4.0-6.0)
[2024-06-26 09:20] LABS: Alanine Aminotransferase 40 IU/L (<50); Albumin 4.5 g/dL (3.5-5.0); Albumin Globulin Ratio 1.9 (1.0-2.8); Alkaline Phosphatase 93 U/L (38-126); Aspartate Aminotransferase 27 IU/L (17-59); BUN Creatinine Ratio 15.4 (6-22); Bilirubin Total 0.6 mg/dL (0.2-1.3); Blood Urea Nitrogen 14 mg/dL (9-20); Calcium 9.4 mg/dL (8.4-10.2); Carbon Dioxide 24 mmol/L (22-32); Chloride 106 mmol/L (98-107); Cholesterol 127 mg/dL (140-199); Estimated Glomerular Filt Rate > 60 mL/min (>60); Globulin 2.4 g/dL (1.7-4.1); Glucose 88 mg/dL (80-110); HDL Cholesterol 27 mg/dL (40-60); HEMOLYSIS < 15 (0-50); LDL Cholesterol Calculated 54 mg/dL (<100); Potassium 3.7 mmol/L (3.4-5.1); Sodium 139 mmol/L (137-145); Total Protein 6.9 g/dL (6.3-8.2); Triglycerides 229 mg/dL (35-150)
[2024-06-26 10:09] LABS: Creatinine Urine Random 16.92 mg/dL
[2024-06-26 10:19] LABS: Microalbumin Urine Random < 0.6 mg/dL (0-1.6)
== END ==
PROVIDERS: PCP Internal Medicine; Referring Provider Internal Medicine; Visit Provider Internal Medicine
DX: Z12.5 Encounter for screening for malignant neoplasm of prostate (principal); I10 Essential (primary) hypertension; E11.65 Type 2 diabetes mellitus with hyperglycemia; Z68.39 Body mass index [BMI] 39.0-39.9, adult; Z79.4 Long term (current) use of insulin
CPT/HCPCS: 36415; 80053; 80061; 82043; 82570; 83036; G0103

== ENCOUNTER → 2024-09-25 10:22 | Outpatient (CLI) | payer OTHER, SELFPAY ==
[2024-09-25 11:31] LABS: Hemoglobin A1C% w Est Avg Glu 7.3 % (4.0-6.0)
[2024-09-25 11:45] LABS: BUN Creatinine Ratio 15.8 (6-22); Blood Urea Nitrogen 15 mg/dL (9-20); Calcium 9.6 mg/dL (8.4-10.2); Carbon Dioxide 25 mmol/L (22-32); Chloride 105 mmol/L (98-107); Estimated Glomerular Filt Rate > 60 mL/min (>60); Glucose 96 mg/dL (80-110); HEMOLYSIS < 15 (0-50); Potassium 4.3 mmol/L (3.4-5.1); Sodium 139 mmol/L (137-145)
== END ==
LOC: LAB 10:23
PROVIDERS: PCP Internal Medicine; Referring Provider Internal Medicine; Visit Provider Internal Medicine
DX: E11.65 Type 2 diabetes mellitus with hyperglycemia (principal); Z79.4 Long term (current) use of insulin; I10 Essential (primary) hypertension; E78.1 Pure hyperglyceridemia
CPT/HCPCS: 36415; 80048; 83036

== ENCOUNTER 2024-11-24 10:06 | Emergency (ER) | payer OTHER, SELFPAY ==
[2024-11-24] VITALS (17 sets, daily range): BP systolic 193–215; BP diastolic 78–96; PULSE 66–75; RESP 16; TEMP 36.6; O2SAT 96–100; BMI 38.0
--- NOTE | 2024-11-24 10:57 | PC.NURSE ---
Pt reports about 7-10 days ago he got sick and noticed he had drooping/paralysis on the right side of his face. No wrinkle folds noted on right side of face. Pt reports he thinks he picked up a virus from another person. Pt reports headaches that are controlled with with Tylenol. states he has diarrhea but states this is normal for him. bowel sounds hyperactive. Lung sounds clear and equal throughout. Pt reports being compliant with medication and reports blood sugars have been well controlled. 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 Pt reports he has been able to keep his eye closed at night. Pt reports he has been seen at [facility] for this and also states he is being treated for sore throat and ear fullness. Pt throat clear; no redness or masses. Possible drainage behind ear drum. Pt reports right ear is bothering him more than left.
--- NOTE | 2024-11-24 12:35 | ED.NEUROSD ---
HPI - Neuro Symptoms/Deficit General Chief Complaint: Neuro Symptoms/Deficit Stated Complaint: Facial numbness and asymetry t-7 Time Seen by Provider: 11/24/24 12:26 Source: patient Mode of arrival: Ambulatory History of Present Illness HPI Narrative: 64-year-old male history of hypertension, diabetes on insulin, dyslipidemia, presents with complaint of right facial numbness x1 week was diagnosed with Boone's palsy. Patient states he developed headache about 3 weeks ago on the same side has been persistent gets better with Tylenol but has not ever gone away. Has not been worsening. He states he does get headaches but does not typically have them persist constantly like this. Has not ever appreciate any rash or skin changes. Noted about a week to 10 days ago facial droop on the right side of his eye and mouth. He was has a little bit of sore throat and has has a little bit of right ear pain. He states he has not had any fevers. No chest pain, no shortness of breath. No nausea or vomiting. No numbness tingling or weakness of any of his extremities he was had normal movement and gait. Patient states he was treated with penicillin for potential strep throat but did not receive any prednisone or antivirals. Was seen at a walk-in clinic. Was noted to be hypertensive here today but states it was normal or somewhat low at the clinic. He also notes his arm isn't fully extended and supported when it was checked he was typically elevated. He states he has been taking his medications daily and has not missed any doses. States he takes metformin, NovoLog, atenolol, lisinopril, 3rd antihypertensive he does not recall, atorvastatin, citalopram no anticoagulants. States he was had prior tonsillectomy and uvulectomy remotely, former smoker 25 years ago, no regular alcohol, no recreational or IV drugs. Follows with Dr. Arnold. He presents today as he has not had any improvement of his symptoms. On Anticoagulants: No Related Data Home Medications ?Medication ?Instructions ?Recorded ?Confirmed amoxicillin 875 mg-potassium 1 tab PO BID 11/24/24 11/24/24 clavulanate 125 mg tablet Previous Rx's ?Medication ?Instructions ?Recorded aspirin 81 mg tablet,delayed 81 mg PO DAILY #90 tabs 05/17/19 release triamcinolone acetonide 0.1 % 1 applictn topical QID #80 grams 04/01/20 topical cream fluticasone propionate 50 2 spray intranasal BEDTIME #16 12/17/20 mcg/actuation nasal grams spray,suspension mupirocin 2 % topical ointment 1 applic topical BID PRN nasal 03/10/22 mucosal infection #15 grams insulin aspart 20 unit SUBCUT QAC #15 mL 04/12/23 (niacinamide)(U-100) 100 unit/mL(3 mL) subcutaneous pen pen needle, diabetic 32 gauge x #100 ea 11/18/23 (Droplet Pen Needle) bupropion HCl 300 mg 24 hr tablet, 300 mg PO DAILY #90 tabs 01/05/24 extended release insulin glargine 100 unit/mL (3 See Rx Instructions .Route 01/27/24 mL) subcutaneous pen (Basaglar .COMPLEX #30 mL KwikPen U-100 Insulin) metformin 1,000 mg tablet 1,000 mg PO BID #180 tabs 04/24/24 olanzapine 5 mg tablet 5 mg PO DAILY #90 tabs 05/24/24 clotrimazole 1 % topical cream 1 applic topical BID 2 weeks #45 06/27/24 (Clotrimazole AF) grams citalopram 40 mg tablet 40 mg PO QDAY #90 tabs 08/14/24 lisinopril 40 mg tablet 40 mg PO BID #180 tabs 08/14/24 glipizide 10 mg tablet 10 mg PO BID #180 tabs 09/18/24 insulin aspart U-100 100 unit/mL 20 unit (0.2 mL) SUBCUT 10/18/24 (3 mL) subcutaneous pen (Novolog USEASDIRECTD #15 mL FlexPen U-100 Insulin aspart) amlodipine 10 mg tablet 10 mg PO DAILY #90 tabs 10/23/24 atenolol 50 mg tablet 100 mg (2 x 50 mg) PO DAILY #180 10/23/24 tabs atorvastatin 80 mg tablet 80 mg PO QPM #90 tabs 10/23/24 prednisone 10 mg tablets in a dose See Rx Instructions PO .COMPLEX 11/24/24 pack #45 ea Allergies Allergy/AdvReac Type Severity Reaction Status Date / Time No Known Allergies Allergy Uncoded 11/24/24 10:16 Review of Systems Review of Systems ROS Unobtainable: All systems reviewed & are unremarkable except as noted in HPI and below Hematologic/Lymphatic On Anticoagulants: No Patient History Medical History BMI 39.0-39.9,adult Insomnia, unspecified (08/07/14) Unspecified sleep apnea (08/07/14) Diabetic neuropathy Hypertriglyceridemia Psychosis BMI 38.0-38.9,adult Morbid obesity with BMI of 40.0-44.9, adult Type 2 diabetes mellitus with hyperglycemia, with long-term current use of insulin Insomnia (Unknown) Hyperlipidemia (Unknown) Tinea versicolor (Unknown) Sleep apnea (~01/2015) Schizophrenia (Unknown) Diabetes (Unknown) Hypertension (Unknown) Surgical History History of tonsillectomy Family History Father Age: 93 Type II diabetes mellitus Mother Age: 87 Hypertension Sister Age: 64 MS (multiple sclerosis) Social History Smoking Status: Former smoker alcohol intake: former Smoking Status: Former smoker Exam Narrative Exam Narrative: GEN: well nourished, well appearing male, alert and oriented x 3, patient appears to be in mild distress. HEENT: Atraumatic, pupils are equal round reactive to light, extraocular movements are intact, nares are clear, TMs are clear with no fluid, there is no conjunctival pallor. Throat is clear without any exudates, erythema, tonsillar enlargement, uvula is not present, patient has decreased movement of the brow, right upper and lower face. Patient can squeeze his eyes shut but has a little bit of difficulty on the right I can easily pull up in the lower lid when squeeze shut, has a complete facial droop with the right side of the mouth. Slightly decreased sensation. HEART: Regular rate and rhythm without murmur, clicks, rubs. LUNGS:Lungs clear to auscultation, no wheezes, rales, crackles, chest moves symmetrically ABD:bowel sounds normal, soft, non-tender, no guarding, rebound, rigidity, no masses noted, no hepatosplenomegaly MSCL: Non-tender, no muscle atrophy, muscles strength 5/5 upper and lower extremities, full range of motion, normal gait NEURO:CN 2-12 intact, sensation normal, finger nose finger test normal, heel gonzalez test normal. Initial Vital Signs Initial Vital Signs: Vital Signs Temperature 98 F 11/24/24 10:16 Pulse Rate 75 11/24/24 10:16 Respiratory Rate 16 11/24/24 10:16 Blood Pressure 215/96 H 11/24/24 10:16 Pulse Oximetry 100 11/24/24 10:16 Oxygen Delivery Method Room Air 11/24/24 10:16 Course Orders Ordered: ED Orders 11/24/24 12:53 CT head/brain wo con Stat 11/24/24 13:00 BMP [Basic Metabolic Panel] Stat CBC Auto Diff [Complete Blood Count AUTO DIFF] Stat Vital Signs Vital signs: Vital Signs - 8 hr 11/24/24 10:16 11/24/24 10:18 11/24/24 10:30 Temperature 98 F Pulse Rate 75 73 71 Respiratory Rate 16 Blood Pressure 215/96 H Pulse Oximetry 100 97 97 Oxygen Delivery Method Room Air 11/24/24 11:00 11/24/24 11:30 11/24/24 11:49 Temperature Pulse Rate 72 71 73 Respiratory Rate Blood Pressure Pulse Oximetry 97 97 97 Oxygen Delivery Method 11/24/24 11:51 11/24/24 11:51 11/24/24 12:00 Temperature Pulse Rate 71 69 Respiratory Rate Blood Pressure 196/88 H Pulse Oximetry 97 98 Oxygen Delivery Method 11/24/24 12:26 11/24/24 12:30 11/24/24 12:30 Temperature Pulse Rate 71 69 Respiratory Rate Blood Pressure 193/78 H Pulse Oximetry 98 97 Oxygen Delivery Method 11/24/24 13:00 11/24/24 13:17 11/24/24 13:17 Temperature Pulse Rate 68 68 Respiratory Rate Blood Pressure 204/88 H Pulse Oximetry 96 98 Oxygen Delivery Method 11/24/24 13:30 11/24/24 13:30 Temperature Pulse Rate 66 Respiratory Rate 16 Blood Pressure 201/88 H Pulse Oximetry 98 Oxygen Delivery Method MDM - Neuro Symptoms/Deficit Lab Data 11/24/24 13:00 11/24/24 13:00 Labs: Lab Results 11/24/24 Range/Units 13:00 WBC 9.1 (4.5-11.0) X10^3/uL RBC 4.63 (4.5-5.9) X10^6/uL Hgb 14.4 (13.5-17.5) g/dL Hct 41.9 (41-53) % MCV 90.5 (80-100) fL MCH 31.0 (26-34) PG MCHC 34.3 (30-36) % RDW 14.2 (11.6-14.8) % Plt Count 309 (150-400) X10^3/uL Neut % (Auto) 57.5 (50-75) % Lymph % (Auto) 26.7 (25-40) % [place] % (Auto) 9.1 (3-14) % Eos % (Auto) 5.8 H (2-4) % Baso % (Auto) 0.9 (0-2) % Neut # (Auto) 5200 (4516-7811) /uL Lymph # (Auto) 2400 (2055-2702) /uL [place] # (Auto) 800 (0-900) /uL Eos # (Auto) 500 H (0-450) /uL Baso # (Auto) 100 (0-100) /uL Sodium 139 (137-145) mmol/L Potassium 4.0 (3.4-5.1) mmol/L Chloride 106 (98-107) mmol/L Carbon Dioxide 22 (22-32) mmol/L BUN 15 (9-20) mg/dL Creatinine 0.77 (0.66-1.25) mg/dL Estimated GFR > 60 (>60) mL/min BUN/Creatinine Ratio 19.5 (6-22) Glucose 159 H (70-99) mg/dL Calcium 9.5 (8.4-10.2) mg/dL [facility] Narrative Medical decision making narrative: 64-year-old male with exam findings that is seem most consistent with Boone's palsy but notes a preceding headache that lasted the past 3 weeks pretty much constantly he was hypertensive here although he notes we will often be hypertensive in his arm isn't well supported while doing blood pressure checks. He states about a week ago he was at a walk-in clinic and they thought he had possible strep throat but also Boone's palsy and history with the penicillin was somewhat low. Patient's exam neurologically is localized to the face and very consistent with Boone's palsy he was otherwise a negative neurologic exam. Because of the preceding and persistent headache head CT was obtained, also labs including CBC and BNP to evaluate for electrolytes as patient does have diabetes could have potentially hyponatremia. Patient defers anything for pain. Head CT no acute intracranial pathology, age-related volume loss and mild white matter small-vessel chronic ischemic changes. Labs show normal white count hemoglobin and platelets, chemistries are normal glucose is 159. Normal creatinine. Discussed findings with the patient, patient has not had any antivirals or prednisone for Boone's palsy. Discussed we will initiate these but discussed we will affect his glucose may need to adjust his medications for better control. Discharge Plan Departure Patient Disposition: Home Clinical Impression: Boone's palsy Instructions: DI for [place] Palsy Activity Restrictions/Additional Instructions: Follow up for recheck if your symptoms are not improving over the next several weeks. Boone's palsy can typically last for weeks to months usually resolves but there are occasional cases where it does not. And may require follow up with the Neurology or Neurosurgery in that case. Please take oral steroids until completed, this can make your glucose quite elevated so if you are having a lot of difficulty you can stop it if needed. You have also been prescribed an antiviral which may help shorten the course of the Boone's palsy. I would also recommend using saline drops every couple hours while awake, and either using eye patch or taping your eye with paper tape at night to help it state moist. Prescription printed. Please return if you are having rapid worsening of headaches, fevers, new rash or skin changes, sudden changes to your vision, new difficulties with numbness, tingling weakness or movement, passing out, or other new or concerning changes. Prescriptions: New prednisone 10 mg tablets,dose pack See Rx Instructions .ROUTE .COMPLEX Qty: 45 0RF Rx Instructions: 60 mg p.o. x5 days, then 50 mg p.o. x1 day, then 40 mg p.o. x1 day, then 30 mg p.o. x1 day, then 20 mg p.o. x1 day, then 10 mg p.o. x1 No Action amoxicillin-pot clavulanate 875-125 mg tablet 1 tab PO BID insulin aspart (niacinamide) 100 unit/mL (3 mL) insulin pen 20 unit SUBCUT QAC Qty: 15 4RF (DME) pen needle, diabetic [Droplet Pen Needle] 32 gauge x 5/32 needle See Rx Instructions .ROUTE .COMPLEX Qty: 100 6RF Dose Instruction: USE FOR INSULIN PEN INJECTIONS Rx Instructions: USE FOR INSULIN PEN INJECTIONS bupropion HCl 300 mg tablet extended release 24 hr 300 mg PO DAILY Qty: 90 3RF Basaglar KwikPen U-100 Insulin 100 unit/mL (3 mL) insulin pen See Rx Instructions .ROUTE .COMPLEX Qty: 30 5RF Rx Instructions: 50 units once daily metformin 1,000 mg tablet 1,000 mg PO BID Qty: 180 3RF olanzapine 5 mg tablet 5 mg PO DAILY Qty: 90 3RF citalopram 40 mg tablet 40 mg PO QDAY Qty: 90 3RF lisinopril 40 mg tablet 40 mg PO BID Qty: 180 3RF glipizide 10 mg tablet 10 mg PO BID Qty: 180 3RF insulin aspart U-100 [Novolog FlexPen U-100 Insulin] 100 unit/mL (3 mL) insulin pen 20 unit SUBCUT USEASDIRECTD Qty: 15 12RF Rx Instructions: 20 units sq before meals amlodipine 10 mg tablet 10 mg PO DAILY Qty: 90 3RF atorvastatin 80 mg tablet 80 mg PO QPM Qty: 90 3RF atenolol 50 mg tablet 100 mg PO DAILY Qty: 180 3RF triamcinolone acetonide 0.1 % cream 1 applictn TOP QID Qty: 80 0RF clotrimazole [Clotrimazole AF] 1 % cream 1 applic TOP BID 14 Days Qty: 45 2RF aspirin 81 mg tablet,delayed release (DR/EC) 81 mg PO DAILY Qty: 90 3RF fluticasone propionate 50 mcg/actuation spray,suspension 2 spray intranasal BEDTIME Qty: 16 0RF Rx Instructions: administer into each nostril mupirocin 2 % ointment 1 applic TOP BID PRN (Reason: nasal mucosal infection) Qty: 15 2RF Referrals: Femi Arnold MD [Primary Care Provider, Internal Medicine] Stand Alone Forms: Patient Portal/API
--- NOTE | 2024-11-24 12:53 | DI.CT.S_ITS ---
PROCEDURE: CT HEAD/BRAIN WO CON INDICATIONS: persistent alan x 3weeks, bells palsy x 1 week TECHNIQUE: Noncontrast 4.5 mm thick angled axial sections acquired from the foramen magnum to the vertex, with coronal and sagittal reformats. For radiation dose reduction, the following was used: automated exposure control, adjustment of mA and/or kV according to patient size. COMPARISON: None. FINDINGS: Image quality: Diagnostic. CSF spaces: Basal cisterns are patent. No extra-axial fluid collections. The ventricles are symmetric in size and shape. Brain: No intracranial bleeds or mass effect. There is cerebral volume loss, with resultant ventricular and sulcal prominence. There are periventricular and deep white matter chronic small vessel ischemic changes. There is intracranial internal carotid artery atherosclerosis. Skull and face: Calvarium and visualized facial bones appear intact, without suspicious lesions. Sinuses: Visualized sinuses and mastoids are clear. IMPRESSION: No acute intracranial pathology. Age related volume loss and mild white matter small vessel chronic ischemic changes. Dictated by: Alejo Baires M.D. on 11/24/2024 at 13:27 Approved by: Alejo Baires M.D. on 11/24/2024 at 13:28
[2024-11-24 13:23] LABS: Add Manual Diff / Slide Review NO; Basophils Absolute Auto 100 /uL (0-100); Basophils Percent Auto 0.9 % (0-2); Eosinophils Absolute Auto 500 /uL (0-450); Eosinophils Percent Auto 5.8 % (2-4); Hematocrit 41.9 % (41-53); Hemoglobin 14.4 g/dL (13.5-17.5); Lymphocytes Absolute Auto 2400 /uL (1100-4500); Lymphocytes Percent Auto 26.7 % (25-40); Mean Corpuscular HGB Conc 34.3 % (30-36); Mean Corpuscular Volume 90.5 fL (80-100); Monocytes Absolute Auto 800 /uL (0-900); Monocytes Percent Auto 9.1 % (3-14); Neutrophils Absolute Auto 5200 /uL (1500-7000); Neutrophils Percent Auto 57.5 % (50-75); Platelet Count 309 X10^3/uL (150-400); Red Blood Cell Count 4.63 X10^6/uL (4.5-5.9); Red Cell Distribution Width 14.2 % (11.6-14.8); White Blood Cell Count 9.1 X10^3/uL (4.5-11.0)
[2024-11-24 13:31] LABS: BUN Creatinine Ratio 19.5 (6-22); Blood Urea Nitrogen 15 mg/dL (9-20); Calcium 9.5 mg/dL (8.4-10.2); Carbon Dioxide 22 mmol/L (22-32); Chloride 106 mmol/L (98-107); Estimated Glomerular Filt Rate > 60 mL/min (>60); Glucose 159 mg/dL (70-99); HEMOLYSIS 36 (0-50); Sodium 139 mmol/L (137-145)
== END 2024-11-24 14:30 | disposition home or self-care (01) ==
PROVIDERS: Emergency Provider Emergency Medicine; PCP Internal Medicine
DX: G51.0 Bell's palsy (principal); R51.9 Headache, unspecified
CPT/HCPCS: 36415; 70450; 80048; 85025; 99283; 99284

== ENCOUNTER → 2024-12-25 07:27 | Outpatient (CLI) | payer OTHER, SELFPAY ==
[2024-12-25 08:30] LABS: Alanine Aminotransferase 38 IU/L (<50); Albumin 4.4 g/dL (3.5-5.0); Albumin Globulin Ratio 1.9 (1.0-2.8); Alkaline Phosphatase 92 U/L (38-126); Blood Urea Nitrogen 14 mg/dL (9-20); Calcium 10.1 mg/dL (8.4-10.2); Carbon Dioxide 25 mmol/L (22-32); Chloride 104 mmol/L (98-107); Cholesterol 120 mg/dL (140-199); Estimated Glomerular Filt Rate > 60 mL/min (>60); Globulin 2.3 g/dL (1.7-4.1); Glucose 158 mg/dL (70-99); HDL Cholesterol 28 mg/dL (40-60); HEMOLYSIS < 15 (0-50); Potassium 5.1 mmol/L (3.4-5.1); Sodium 137 mmol/L (137-145); Total Protein 6.7 g/dL (6.3-8.2); Triglycerides 249 mg/dL (35-150)
[2024-12-25 08:31] LABS: Hemoglobin A1C% w Est Avg Glu 7.3 % (4.0-6.0)
== END ==
PROVIDERS: PCP Internal Medicine; Referring Provider Internal Medicine; Visit Provider Internal Medicine
DX: I10 Essential (primary) hypertension (principal); E11.9 Type 2 diabetes mellitus without complications; E78.1 Pure hyperglyceridemia
CPT/HCPCS: 36415; 80053; 80061; 83036; 83721